=== PATIENT | male | born 1970 | race African-American/Black ===

== ENCOUNTER 2019-03-18 08:48 | Inpatient (IN) ==
[2019-03-18 09:44] LABS: Basophils % 0.1 % (0.0-0.8); Eosinophils % 0.1 % (0.00-10.9); Hematocrit 27.5 VOL% (42.0-52.0); Hemoglobin 9.2 GM/DL (14.0-18.0); Immature Granulocytes % 0.7 %; Immature Granulocytes Absolute 0.06 #; Lymphocytes # 0.6 10*3/uL (1.4-4.0); Lymphocytes % 6.6 % (21.2-54.2); Mean Corpuscular HGB Conc 33.5 GM/DL (32-36); Mean Corpuscular Volume 95.5 FL (87-102); Mean Platelet Volume 10.9 FL (9.6-12.0); Monocytes % 5.1 % (1.7-12.7); Neutrophils % 87.4 % (38.7-73.9); Platelet Count 152 T/CUMM (130-400); Red Blood Count 2.88 MC/CUMM (3.8-5.5); Red Cell Distribution Width 14.1 % (9.3-17.3)
[2019-03-18] MEDS ORDERED: PANTOPRAZOLE 40 MG VIAL IV STA (09:48)
[2019-03-18] MEDS ORDERED: ONDANSETRON 4 MG/2 ML VIAL IV STA (09:48)
[2019-03-18] MEDS ORDERED: SODIUM CHLORIDE 0.9% 1,000 ML IV STA (09:48)
[2019-03-18 10:02] LABS: PT Patient Result 10.6 SECS (9.6-12.2)
[2019-03-18 10:06] LABS: Albumin 3.3 G/DL (3.4-5.0); Bilirubin,Total 1.7 MG/DL (0.2-1.0); Calcium 8.8 MG/DL (8.5-10.1); Osmolality,Calculated 291.4 MOS/KG (273-304); Total Protein 7.4 G/DL (6.4-8.3)
[2019-03-18] MEDS ORDERED: LACTULOSE 20 GM/30 ML UDCUP PO PRN (11:37)
[2019-03-18] MEDS ORDERED: ACETAMINOPHEN 325 MG TABLET PO PRN (11:37)
[2019-03-18] MEDS ORDERED: ONDANSETRON 4 MG/2 ML VIAL IV PRN (11:37)
[2019-03-18] MEDS ORDERED: SODIUM CHLORIDE 0.9% 1,000 ML IV SCH (12:00)
[2019-03-18 12:31] LABS: % Iron Saturation 96.1 % (18-50); Ferritin 319.9 ng/ml (26-388); Risk Ratio 1.37
[2019-03-18 12:49] LABS: Thyroid Stimulating Hormone 0.484 uIU/ml (0.358-3.74)
[2019-03-18 13:52] LABS: Apearance,Urine CLEAR (Clear); Bilirubin,Urine Negative (Negative); Blood, Urine Negative (Negative); Glucose,Urine (UA) Negative (Negative); Ketones,Urine 20 mg/dL (Negative); Mucus,Urine Occasional /LPF (Occasional); Nitrite,Urine Negative (Negative); Protein,Urine Negative; RBC,Urine 6 /HPF (0-4); Urine Color Yellow (Yellow); Urine Specific Gravity 1.023 (1.001-1.035); Urine Urobilinogen < 2.0 EU/DL (0.2-1.0); WBC,Urine 1 /HPF (0-6)
[2019-03-18 14:20] LABS: Basophils % 0.3 % (0.0-0.8); Eosinophils % 0.2 % (0.00-10.9); Hematocrit 25.9 VOL% (42.0-52.0); Hemoglobin 8.5 GM/DL (14.0-18.0); Immature Granulocytes % 0.7 %; Immature Granulocytes Absolute 0.07 #; Lymphocytes # 0.8 10*3/uL (1.4-4.0); Lymphocytes % 7.8 % (21.2-54.2); Mean Corpuscular HGB Conc 32.8 GM/DL (32-36); Mean Corpuscular Volume 97.4 FL (87-102); Mean Platelet Volume 10.9 FL (9.6-12.0); Monocytes % 7.2 % (1.7-12.7); Neutrophils % 83.8 % (38.7-73.9); Platelet Count 144 T/CUMM (130-400); Red Blood Count 2.66 MC/CUMM (3.8-5.5); Red Cell Distribution Width 14.4 % (9.3-17.3)
[2019-03-18 14:43] LABS: Folate 7.3 NG/ML (5.4-24.0); Vitamin B12 582 PG/ML (211-911)
[2019-03-18 15:20] LABS: Sedimentation Rate-Westergren 36 MM/HR (0-15)
[2019-03-18 15:25] LABS: Hepatitis B Core IgM Quant 0.06 Index; Hepatitis B Surface Ag Quant < 0.10 Index; Hepatitis B Surface Ag Result Negative (Negative); Hepatitis C Virus Ab Quant 0.08 Index; Hepatitis C Virus Ab Result Negative (Negative)
[2019-03-18 21:46] LABS: Hematocrit 22.8 VOL% (42.0-52.0)
[2019-03-18 21:48] LABS: Hemoglobin 7.7 GM/DL (14.0-18.0)
[2019-03-18] MEDS: PANTOPRAZOLE 40 MG VIAL IV SCH (21:49)
[2019-03-18] MEDS ORDERED: SODIUM CHLORIDE 0.9% 1,000 ML IV PRN (22:20)
[2019-03-18] MEDS ORDERED: METHOCARBAMOL 750 MG TABLET PO PRN (22:46)
[2019-03-18] MEDS ORDERED: HydrOXYzine PAMOATE 25 MG CAPSULE PO PRN (22:46)
[2019-03-18] MEDS ORDERED: THIAMINE INJ 100 MG, FOLIC ACID INJ 1 MG, MULTIVITAMIN INJ 10 ML in SODIUM CHLORIDE 0.9... IV ONE (23:00)
[2019-03-18] MEDS: chlordiazePOXIDE 25 MG CAPSULE PO SCH (23:01)
[2019-03-18] MEDS ORDERED: LORazepam 2 MG/1 ML VIAL IV PRN (23:06)
[2019-03-19] MEDS: LORazepam 2 MG/1 ML VIAL IV PRN ×2 (02:03→10:48)
[2019-03-19] MEDS: chlordiazePOXIDE 25 MG CAPSULE PO SCH (04:32)
[2019-03-19] MEDS ORDERED: LACTATED RINGERS 1,000 ML IV SCH (08:00)
[2019-03-19 08:14] LABS: Basophils % 0.4 % (0.0-0.8); Eosinophils # 0.1 10*3/uL (0.0-0.87); Eosinophils % 1.2 % (0.00-10.9); Hematocrit 27.5 VOL% (42.0-52.0); Immature Granulocytes % 0.4 %; Immature Granulocytes Absolute 0.04 #; Lymphocytes # 1.7 10*3/uL (1.4-4.0); Lymphocytes % 18.9 % (21.2-54.2); Mean Corpuscular HGB Conc 33.8 GM/DL (32-36); Mean Corpuscular Volume 93.2 FL (87-102); Mean Platelet Volume 11.4 FL (9.6-12.0); Monocytes % 7.1 % (1.7-12.7); Red Blood Count 2.95 MC/CUMM (3.8-5.5); Red Cell Distribution Width 14.7 % (9.3-17.3); White Blood Count 9.1 T/CUMM (4-12)
[2019-03-19 08:20] LABS: Hemoglobin 9.3 GM/DL (14.0-18.0); Platelet Count 114 T/CUMM (130-400)
[2019-03-19 08:28] LABS: Calcium 8.6 MG/DL (8.5-10.1); Osmolality,Calculated 274.5 MOS/KG (273-304)
[2019-03-19 08:31] LABS: Albumin 3.2 G/DL (3.4-5.0); Bilirubin,Direct 0.4 MG/DL (0.0-0.20); Bilirubin,Indirect 0.9 MG/DL (0.0-1.0); Bilirubin,Total 1.3 MG/DL (0.2-1.0); Total Protein 6.8 G/DL (6.4-8.3)
[2019-03-19] MEDS ORDERED: THIAMINE 100 MG TABLET PO SCH (09:00)
[2019-03-19] MEDS ORDERED: PANTOPRAZOLE 40 MG VIAL IV SCH (09:00)
[2019-03-19] MEDS ORDERED: FOLIC ACID 1 MG TABLET PO SCH (09:00)
[2019-03-19] MEDS ORDERED: MULTIVITAMIN (CENTRUM) TABLET PO SCH (09:00)
[2019-03-19] MEDS ORDERED: MULTIVIT MIN FA LYCOPEN LUTEIN PO SCH (09:45)
[2019-03-19] MEDS ORDERED: levETIRAcetam 500 MG TABLET PO SCH (10:00)
[2019-03-19] MEDS ORDERED: propofoL 200 MG/20 ML VIAL IV ONE (10:00)
[2019-03-19] MEDS ORDERED: LIDOCAINE 2% 5 ML VIAL ONE (10:00)
[2019-03-19] MEDS: PANTOPRAZOLE 40 MG VIAL IV SCH (10:16)
[2019-03-19] MEDS: chlordiazePOXIDE 25 MG CAPSULE PO PRN ×2 (12:13→16:29)
[2019-03-19 14:07] LABS: Hematocrit 27.6 VOL% (42.0-52.0); Hemoglobin 9.3 GM/DL (14.0-18.0)
[2019-03-19 16:19] VITALS: BP 128/84
== END 2019-03-19 17:30 | disposition left against medical advice (07) | DRG 369 ==
LOC: N.ED 08:48 → SUATTDRO 11:37 → N.EDINP 11:37 → N.4E 12:27
PROVIDERS: ADMIT Family Medicine; ATTEND Internal Medicine